=== PATIENT | male | born 1980 | race Caucasian/White ===

== ENCOUNTER 2023-11-10 17:47 | Emergency (ER) | payer MEDICAID ==
[2023-11-10 17:56] VITALS: BP 144/96; O2SAT 98
[2023-11-10 18:54] LABS: CORONAVIRUS 229E-RESP PCR NOT DETECTED; CORONAVIRUS HKU1-RESP PCR NOT DETECTED; CORONAVIRUS NL63-RESP PCR NOT DETECTED; CORONAVIRUS OC43-RESP PCR NOT DETECTED; HUMAN METAPNEUMOVIRUS NOT DETECTED; INFLUENZA A- RESP PCR PANEL NOT DETECTED; RHINOVIRUS/ENTEROVIRUS NOT DETECTED
[2023-11-10 18:55] LABS: B. PARAPERTUSSIS- RESP PCR PAN NOT DETECTED; B. PERTUSSIS- RESP PCR PANEL NOT DETECTED; C. PNEUMONIAE- RESP PCR PANEL NOT DETECTED; INFLUENZA B - RESP PCR PANEL NOT DETECTED; M. PNEUMONIAE- RESP PCR PANEL NOT DETECTED; PARAINFLUENZA VIRUS 1 NOT DETECTED; PARAINFLUENZA VIRUS 2 NOT DETECTED; PARAINFLUENZA VIRUS 3 NOT DETECTED; PARAINFLUENZA VIRUS 4 NOT DETECTED; RSV- RESP PCR PANEL NOT DETECTED
[2023-11-10 18:56] LABS: SARS-CoV-2 -RESP PCR PANEL DETECTED
--- NOTE | 2023-11-10 20:34 | ED Physician Documentation ---
PD HPI URI - Stated complaint Stated Complaint: FEVER/COUGH - Chief complaint Chief Complaint: Resp - Additional information Additional information: 43-year-old male with no pertinent past medical history presents emergency department with 2 days of generalized bodyaches fevers and chills. Patient says that he works for [employer] and has been feeling unwell and just wanted to make sure he got tested for any sort of respiratory illnesses before he returns back to work. He has not taken any Tylenol ibuprofen today. PD PAST MEDICAL HISTORY - Past Medical History Past Medical History: Yes Respiratory: Sleep apnea, CPAP use - Past Surgical History Past Surgical History: Yes Ortho: ACL reconstruction - Present Medications Home Medications: Ambulatory Orders Medication Instructions Recorded Confirmed No Known Home Medications 11/10/23 11/10/23 - Allergies Allergies/Adverse Reactions: Allergies Allergy/AdvReac Type Severity Reaction Status Date / Time No Known Drug Allergies Allergy Verified 11/10/23 17:54 - Social History Does the pt smoke?: No Smoking Status: Former smoker Does the pt drink ETOH?: Yes ETOH Use: Beer Does the pt have substance abuse?: No PD ED PE NORMAL - Vitals Vital signs reviewed: Yes - General General: Alert and oriented X 3, No acute distress, Well developed/nourished - HEENT HEENT: Atraumatic, PERRL - Cardiac Cardiac: RRR - Respiratory Respiratory: No respiratory distress - Abdomen Abdomen: Normal bowel sounds, Soft - Back Back: No CVA TTP - Derm Derm: Normal color, Warm and dry, No rash - Psych Psych: Normal mood Results - Vitals Vitals: Vital Signs - 24 hr 11/10/23 11/10/23 17:49 20:57 Temperature 37.1 C Heart Rate 75 92 Respiratory 18 16 Rate Blood Pressure 144/96 H O2 Saturation 98 98 Oxygen O2 Source Room air - Labs Labs: Laboratory Tests 11/10/23 17:58 Nasal Adenovirus (PCR) NOT DETECTED Nasal B. parapertussis DNA (PCR) NOT DETECTED Nasal Coronavir 229E PCR NOT DETECTED Nasal Coronavir HKU1 PCR NOT DETECTED Nasal Coronavir NL63 PCR NOT DETECTED Nasal Coronavir OC43 PCR NOT DETECTED Nasal Enterovir/Rhinovir PCR NOT DETECTED Nasal Influenza B PCR NOT DETECTED Nasal Influenza A PCR NOT DETECTED Nasal Parainfluen 1 PCR NOT DETECTED Nasal Parainfluen 2 PCR NOT DETECTED Nasal Parainfluen 3 PCR NOT DETECTED Nasal Parainfluen 4 PCR NOT DETECTED Nasal RSV (PCR) NOT DETECTED Nasal B.pertussis DNA PCR NOT DETECTED Nasal C.pneumoniae (PCR) NOT DETECTED Federico Human Metapneumo PCR NOT DETECTED Nasal M.pneumoniae (PCR) NOT DETECTED Nasal SARS-CoV-2 (PCR) DETECTED A PD Medical Decision Making - ED course ED course: 43-year-old male presents emergency department for flulike symptoms. Patient tested positive for COVID-19. He was requesting a work note he also requested Tylenol ibuprofen while he was here he was taught how to manage his symptoms at home all questions answered work note given return precautions given patient is overall well-appearing and safe for discharge at this time. Departure - Departure Disposition: Home, Self Care Clinical Impression: COVID-19 Instructions: ED Viral Syndrome, COVID-19 [facility], COVID-[address] [facility] Department Statement Comments: Thank you for trusting us with your care. You have been tested and tested positive for COVID-19. As we discussed this will take some time to recover from usually people start to feel better after about 5 days. Usually people start to feel better after about 5 days. You can take 1000 mg of Tylenol every 8 hours for body aches fevers and chills as well as 600 to 800 mg of ibuprofen every 6 hours. Please come back to the ER if you are having any shortness of breath, chest pain, worsening symptoms and follow-up with your primary care provider as needed outpatient. Forms: PCP List Discharge Date/Time: 11/10/23 20:57
[2023-11-10] MEDS: ACETAMINOPHEN 325 MG TABLET PO STA (20:46)
[2023-11-10] MEDS: IBUPROFEN 600 MG TABLET PO STA (20:46)
== END 2023-11-10 20:57 | disposition home or self-care (01) ==
LOC: EDBD → ED 17:47
DX: U07.1 COVID-19 (principal); Z87.891 Personal history of nicotine dependence
CPT/HCPCS: 87633; 99283; A9270